=== PATIENT | male | born 1970 | race Caucasian/White ===

== ENCOUNTER 2022-04-03 16:32 | Inpatient (IN) | payer OTHER ==
[2022-04-03] MEDS ORDERED: NALOXONE HCL 0.4 MG/ML VIAL IM PRN (19:36)
[2022-04-03] MEDS ORDERED: MAGNESIUM CITRATE 300 ML BOTTLE PO PRN (19:36)
[2022-04-03] MEDS ORDERED: NICOTINE 10 MG CARTRIDGE (INHALER) IH PRN (19:36)
[2022-04-03] MEDS ORDERED: NALOXONE HCL (KLOXXADO) 8 MG SPRAY NS PRN (19:36)
[2022-04-03] MEDS ORDERED: guaiFENesin 200 MG/10 ML 10 ML UNIT-DOSE CUPS PO PRN (19:36)
[2022-04-03] MEDS ORDERED: BENZOCAINE/MENTHOL (CHLORASEPTIC ) LOZENGE MM PRN (19:36)
[2022-04-03] MEDS ORDERED: ACETAMINOPHEN 325 MG TABLET (FP) PO PRN (19:36)
[2022-04-03] MEDS ORDERED: ONDANSETRON *ODT* 4 MG TABLET SL PRN (19:36)
[2022-04-03] MEDS ORDERED: NICOTINE POLACRILEX 2 MG GUM BUC PRN (19:36)
[2022-04-03] MEDS ORDERED: DICYCLOMINE HCL 10 MG CAPSULE PO PRN (19:36)
[2022-04-03] MEDS ORDERED: P-EPHED 60MG/TRIPROLIDI 2.5MG TABLET PO PRN (19:36)
[2022-04-03] MEDS ORDERED: MAGNESIUM HYDROX 2400MG/30ML ORAL SUSPENSION 30 ML CUP PO PRN (19:36)
[2022-04-03] MEDS ORDERED: LOPERAMIDE HCL 2 MG CAPSULE PO PRN (19:36)
[2022-04-03] MEDS ORDERED: methaDONE HCL 10 MG TABLET PO ONE (20:40)
[2022-04-03] MEDS ORDERED: INSULIN (NOVOLOG) ASPART 100 UNITS/ML 10ML VIAL ONE (21:01)
[2022-04-03] MEDS: INSULIN SLIDING SCALE (NOVOLOG) 1 VIAL SQ SCH ×2 (21:09→23:28)
[2022-04-03] MEDS: THIAMINE HCL 100 MG TABLET (FP) PO SCH (21:11)
[2022-04-03] MEDS: MELATONIN 5 MG TABLETS PO PRN (22:20)
[2022-04-03] MEDS: BACITRACIN 0.9 GM PACKET TP SCH (23:26)
[2022-04-03] MEDS ORDERED: INSULIN (NOVOLOG) ASPART 100 UNITS/ML 10ML VIAL SQ ONE (23:27)
[2022-04-04] MEDS ORDERED: INSULIN (NOVOLOG) ASPART 100 UNITS/ML 10ML VIAL ONE ×3 (05:26→22:14)
[2022-04-04] MEDS: INSULIN SLIDING SCALE (NOVOLOG) 1 VIAL SQ SCH ×4 (06:21→22:22)
[2022-04-04] MEDS ORDERED: ALBUTEROL SO4 HFA INHALER IH PRN (10:05)
[2022-04-04] MEDS ORDERED: cloNIDine HCL 0.1 MG TABLET PO PRN (10:18)
[2022-04-04] MEDS ORDERED: methaDONE HCL 10 MG TABLET (FOR DETOX USE ONLY) PO ONE (10:45)
[2022-04-04 10:53] LABS: HEMATOCRIT 35.8 % (35.4-49); HEMOGLOBIN 11.5 GM/dL (11.7-16.9); MCH 24.5 pg (25.7-33.7); MEAN CELL VOLUME 76.6 fl (80-96); MEAN PLT VOLUME 8.1 fl (7.5-11.1); PLATELET COUNT 365 10^3/uL (134-434); RBC 4.68 M/mm3 (4.00-5.60); RDW 14.2 % (11.9-15.9); WHITE BLOOD COUNT 8.3 K/mm3 (4.0-10.0)
[2022-04-04] MEDS: METHOCARBAMOL 500 MG TABLET PO PRN (10:58)
[2022-04-04] MEDS: PRENATAL VITAMINS W/ FOLIC ACID TABLET (FP) PO SCH (10:58)
[2022-04-04] MEDS: amLODIPine BESYLATE 5 MG TABLET (FP) PO SCH (10:58)
[2022-04-04] MEDS: LISINOPRIL 10 MG TABLET PO SCH (10:58)
[2022-04-04] MEDS: diazePAM 5 MG TABLET PO PRN ×2 (11:03→22:17)
[2022-04-04] MEDS: BACITRACIN 0.9 GM PACKET TP SCH ×4 (11:03→22:17)
[2022-04-04 11:34] LABS: CALCIUM 8.8 mg/dL (8.5-10.1)
[2022-04-04 11:35] LABS: ALBUMIN 2.9 g/dl (3.4-5.0); BLOOD UREA NITROGEN 9.7 mg/dL (7-18)
[2022-04-04 11:38] LABS: CREATININE 0.8 mg/dL (0.55-1.3)
[2022-04-04 11:39] LABS: BILIRUBIN,TOTAL 0.2 mg/dL (0.2-1); TOT PROT 6.4 g/dl (6.4-8.2)
[2022-04-04] MEDS: MELATONIN 5 MG TABLETS PO PRN (22:17)
[2022-04-04] MEDS: THIAMINE HCL 100 MG TABLET (FP) PO SCH (22:17)
[2022-04-04] MEDS: INSULIN (LEVEMIR) 100 UNITS/ML UNITS SQ SCH (22:22)
[2022-04-05] MEDS ORDERED: INSULIN (NOVOLOG) ASPART 100 UNITS/ML 10ML VIAL ONE ×3 (07:32→16:45)
[2022-04-05] MEDS: INSULIN SLIDING SCALE (NOVOLOG) 1 VIAL SQ SCH ×4 (07:41→22:58)
[2022-04-05] MEDS: PRENATAL VITAMINS W/ FOLIC ACID TABLET (FP) PO SCH (10:07)
[2022-04-05] MEDS: LISINOPRIL 10 MG TABLET PO SCH (10:08)
[2022-04-05] MEDS: diazePAM 5 MG TABLET PO PRN ×2 (10:08→22:12)
[2022-04-05] MEDS: METHOCARBAMOL 500 MG TABLET PO PRN (10:08)
[2022-04-05] MEDS: amLODIPine BESYLATE 5 MG TABLET (FP) PO SCH (10:08)
[2022-04-05] MEDS: ACETAMINOPHEN 325 MG TABLET (FP) PO PRN (11:20)
[2022-04-05] MEDS: BACITRACIN 0.9 GM PACKET TP SCH (12:43)
[2022-04-05] MEDS: BACITRACIN 15 GM TUBE TOPICAL OINTMENT TP SCH ×3 (13:59→22:58)
[2022-04-05] MEDS: MELATONIN 5 MG TABLETS PO PRN (22:11)
[2022-04-05] MEDS: THIAMINE HCL 100 MG TABLET (FP) PO SCH (22:11)
[2022-04-05] MEDS: INSULIN (LEVEMIR) 100 UNITS/ML UNITS SQ SCH (22:57)
[2022-04-06] MEDS: diazePAM 5 MG TABLET PO PRN ×3 (05:51→23:01)
[2022-04-06] MEDS: METHOCARBAMOL 500 MG TABLET PO PRN (05:51)
[2022-04-06] MEDS: ACETAMINOPHEN 325 MG TABLET (FP) PO PRN (05:52)
[2022-04-06] MEDS: INSULIN SLIDING SCALE (NOVOLOG) 1 VIAL SQ SCH ×4 (07:48→16:52)
[2022-04-06] MEDS ORDERED: methaDONE HCL 10 MG TABLET (FOR DETOX USE ONLY) PO ONE (10:00)
[2022-04-06] MEDS: LISINOPRIL 10 MG TABLET PO SCH (10:22)
[2022-04-06] MEDS: hydrOXYzine PAMOATE 25 MG CAPSULE (FP) PO PRN (10:22)
[2022-04-06] MEDS: PRENATAL VITAMINS W/ FOLIC ACID TABLET (FP) PO SCH (10:22)
[2022-04-06] MEDS: amLODIPine BESYLATE 5 MG TABLET (FP) PO SCH (10:23)
[2022-04-06] MEDS: BACITRACIN 15 GM TUBE TOPICAL OINTMENT TP SCH ×3 (10:29→18:19)
[2022-04-06] MEDS: INSULIN (NOVOLOG) ASPART 100 UNITS/ML 10ML VIAL SQ SCH (16:51)
[2022-04-06] MEDS: INSULIN (LEVEMIR) 100 UNITS/ML UNITS SQ SCH (22:10)
[2022-04-06] MEDS: THIAMINE HCL 100 MG TABLET (FP) PO SCH (23:02)
[2022-04-06] MEDS: MELATONIN 5 MG TABLETS PO PRN (23:03)
[2022-04-07] MEDS: INSULIN (NOVOLOG) ASPART 100 UNITS/ML 10ML VIAL SQ SCH ×3 (07:27→16:40)
[2022-04-07] MEDS: INSULIN SLIDING SCALE (NOVOLOG) 1 VIAL SQ SCH ×4 (07:30→23:07)
[2022-04-07] MEDS ORDERED: INSULIN (NOVOLOG) ASPART 100 UNITS/ML 10ML VIAL ONE (07:46)
[2022-04-07] MEDS: hydrOXYzine PAMOATE 25 MG CAPSULE (FP) PO PRN (10:29)
[2022-04-07] MEDS: LISINOPRIL 10 MG TABLET PO SCH (10:29)
[2022-04-07] MEDS: amLODIPine BESYLATE 5 MG TABLET (FP) PO SCH (10:29)
[2022-04-07] MEDS: PRENATAL VITAMINS W/ FOLIC ACID TABLET (FP) PO SCH (10:29)
[2022-04-07] MEDS: METHOCARBAMOL 500 MG TABLET PO PRN (10:29)
[2022-04-07] MEDS: BACITRACIN 15 GM TUBE TOPICAL OINTMENT TP SCH ×5 (10:30→23:07)
[2022-04-07] MEDS: diazePAM 5 MG TABLET PO PRN ×3 (13:22→22:29)
[2022-04-07] MEDS ORDERED: cloNIDine HCL 0.1 MG TABLET PO ONE (13:30)
[2022-04-07] MEDS: THIAMINE HCL 100 MG TABLET (FP) PO SCH (22:30)
[2022-04-07] MEDS: MELATONIN 5 MG TABLETS PO PRN (22:30)
[2022-04-07] MEDS: INSULIN (LEVEMIR) 100 UNITS/ML UNITS SQ SCH (23:07)
[2022-04-08] MEDS: INSULIN (NOVOLOG) ASPART 100 UNITS/ML 10ML VIAL SQ SCH ×3 (07:05→17:20)
[2022-04-08] MEDS: INSULIN SLIDING SCALE (NOVOLOG) 1 VIAL SQ SCH ×4 (07:05→22:21)
[2022-04-08] MEDS ORDERED: methaDONE HCL 10 MG TABLET (FOR DETOX USE ONLY) PO ONE (10:00)
[2022-04-08] MEDS: amLODIPine BESYLATE 5 MG TABLET (FP) PO SCH (10:14)
[2022-04-08] MEDS: hydrOXYzine PAMOATE 25 MG CAPSULE (FP) PO PRN (10:14)
[2022-04-08] MEDS: LISINOPRIL 10 MG TABLET PO SCH (10:14)
[2022-04-08] MEDS: diazePAM 5 MG TABLET PO PRN (10:14)
[2022-04-08] MEDS: METHOCARBAMOL 500 MG TABLET PO PRN (10:14)
[2022-04-08] MEDS: PRENATAL VITAMINS W/ FOLIC ACID TABLET (FP) PO SCH (10:15)
[2022-04-08] MEDS: BACITRACIN 15 GM TUBE TOPICAL OINTMENT TP SCH ×4 (10:15→22:21)
[2022-04-08] MEDS: INSULIN (LEVEMIR) 100 UNITS/ML UNITS SQ SCH (22:21)
[2022-04-08] MEDS: THIAMINE HCL 100 MG TABLET (FP) PO SCH (22:22)
[2022-04-09] MEDS: INSULIN (NOVOLOG) ASPART 100 UNITS/ML 10ML VIAL SQ SCH ×3 (06:40→16:47)
[2022-04-09] MEDS: INSULIN SLIDING SCALE (NOVOLOG) 1 VIAL SQ SCH ×4 (06:41→21:25)
[2022-04-09] MEDS: MAG HYDROX/AL HYDROX/SIMETH 30 ML UNIT-DOSE CUP PO PRN (07:16)
[2022-04-09] MEDS: LISINOPRIL 10 MG TABLET PO SCH (10:37)
[2022-04-09] MEDS: amLODIPine BESYLATE 5 MG TABLET (FP) PO SCH (10:37)
[2022-04-09] MEDS: PRENATAL VITAMINS W/ FOLIC ACID TABLET (FP) PO SCH (10:37)
[2022-04-09] MEDS: hydrOXYzine PAMOATE 25 MG CAPSULE (FP) PO PRN ×2 (10:38→22:25)
[2022-04-09] MEDS: METHOCARBAMOL 500 MG TABLET PO PRN (10:38)
[2022-04-09] MEDS: BACITRACIN 15 GM TUBE TOPICAL OINTMENT TP SCH ×4 (10:44→21:37)
[2022-04-09] MEDS: INSULIN (LEVEMIR) 100 UNITS/ML UNITS SQ SCH (21:37)
[2022-04-09] MEDS ORDERED: risperiDONE 1 MG TABLET PO SCH (22:00)
[2022-04-09] MEDS: THIAMINE HCL 100 MG TABLET (FP) PO SCH (22:25)
[2022-04-09] MEDS: MELATONIN 5 MG TABLETS PO PRN (22:25)
[2022-04-09] MEDS: diazePAM 5 MG TABLET PO PRN (22:26)
[2022-04-10] MEDS: INSULIN (NOVOLOG) ASPART 100 UNITS/ML 10ML VIAL SQ SCH ×2 (07:31→11:52)
[2022-04-10] MEDS: INSULIN SLIDING SCALE (NOVOLOG) 1 VIAL SQ SCH ×2 (07:31→11:54)
[2022-04-10] MEDS: MAG HYDROX/AL HYDROX/SIMETH 30 ML UNIT-DOSE CUP PO PRN (08:45)
[2022-04-10] MEDS: ACETAMINOPHEN 325 MG TABLET (FP) PO PRN (08:46)
[2022-04-10 09:05] VITALS: BP 122/64; PULSE 86; RESP 16; TEMP 96
[2022-04-10] MEDS: amLODIPine BESYLATE 5 MG TABLET (FP) PO SCH (10:27)
[2022-04-10] MEDS: LISINOPRIL 10 MG TABLET PO SCH (10:27)
[2022-04-10] MEDS: BACITRACIN 15 GM TUBE TOPICAL OINTMENT TP SCH (10:28)
[2022-04-10] MEDS: PRENATAL VITAMINS W/ FOLIC ACID TABLET (FP) PO SCH (10:28)
== END 2022-04-10 12:03 | disposition other institution (70) | DRG 773 ==
LOC: YASAS 16:32 → Y6N 19:39
PROVIDERS: ADMIT Allergy & Immunology; ATTEND Surgery
PROC: HZ2ZZZZ Detoxification Services for Substance Abuse Treatment (ICD-10-PCS; principal; 2022-04-03)
DX: F11.23 Opioid dependence with withdrawal (principal); F14.20 Cocaine dependence, uncomplicated; F12.20 Cannabis dependence, uncomplicated; F17.210 Nicotine dependence, cigarettes, uncomplicated; F25.9 Schizoaffective disorder, unspecified; F19.282 Other psychoactive substance dependence with psychoactive substance-induced sleep disorder; I10 Essential (primary) hypertension; J45.909 Unspecified asthma, uncomplicated; E11.9 Type 2 diabetes mellitus without complications; Z79.4 Long term (current) use of insulin; S09.90XA Unspecified injury of head, initial encounter; W05.0XXA Fall from non-moving wheelchair, initial encounter; Y92.230 Patient room in hospital as the place of occurrence of the external cause; Z89.511 Acquired absence of right leg below knee; Z99.89 Dependence on other enabling machines and devices; Z88.6 Allergy status to analgesic agent; Z91.013 Allergy to seafood
CPT/HCPCS: 36415; 80053; 82962; 85027; 86780; C9803-CS; J2794; U0003; U0005

== ENCOUNTER 2022-04-10 12:14 | Inpatient (IN) | payer OTHER ==
[2022-04-10] MEDS ORDERED: LOPERAMIDE HCL 2 MG CAPSULE PO PRN (13:54)
[2022-04-10] MEDS ORDERED: BENZOCAINE/MENTHOL (CHLORASEPTIC ) LOZENGE MM PRN (13:54)
[2022-04-10] MEDS ORDERED: MAG HYDROX/AL HYDROX/SIMETH 30 ML UNIT-DOSE CUP PO PRN (13:54)
[2022-04-10] MEDS ORDERED: MAGNESIUM HYDROX 2400MG/30ML ORAL SUSPENSION 30 ML CUP PO PRN (13:54)
[2022-04-10] MEDS ORDERED: MAGNESIUM CITRATE 300 ML BOTTLE PO PRN (13:54)
[2022-04-10] MEDS ORDERED: guaiFENesin 200 MG/10 ML 10 ML UNIT-DOSE CUPS PO PRN (13:54)
[2022-04-10] MEDS ORDERED: IBUPROFEN 400 MG TABLET (FP) PO PRN (13:54)
[2022-04-10] MEDS ORDERED: ACETAMINOPHEN 325 MG TABLET (FP) PO PRN (13:54)
[2022-04-10] MEDS ORDERED: P-EPHED 60MG/TRIPROLIDI 2.5MG TABLET PO PRN (13:54)
[2022-04-10] MEDS ORDERED: PATIENT'S OWN MEDICATION (NON-FORMULARY) (Albuterol Sulfate [Proair Respiclick] 90 MCG Aer IH SCH (14:15)
[2022-04-10] MEDS ORDERED: ALBUTEROL SO4 HFA INHALER IH PRN (15:04)
[2022-04-10] MEDS ORDERED: INSULIN SLIDING SCALE (NOVOLOG) 1 VIAL SQ SCH (16:30)
[2022-04-10] MEDS ORDERED: INSULIN (NOVOLOG) ASPART 100 UNITS/ML 10ML VIAL ONE (16:42)
[2022-04-10] MEDS: INSULIN (NOVOLOG) ASPART 100 UNITS/ML 10ML VIAL SQ SCH (16:43)
[2022-04-10] MEDS: INSULIN SLIDING SCALE (NOVOLOG) 1 VIAL SQ SCH ×2 (16:44→21:15)
[2022-04-10] MEDS: risperiDONE 1 MG TABLET PO SCH (21:13)
[2022-04-10] MEDS: THIAMINE HCL 100 MG TABLET (FP) PO SCH (21:13)
[2022-04-10] MEDS: hydrOXYzine PAMOATE 25 MG CAPSULE (FP) PO PRN (21:13)
[2022-04-10] MEDS: MELATONIN 5 MG TABLETS PO SCH (21:13)
[2022-04-11] MEDS: INSULIN (NOVOLOG) ASPART 100 UNITS/ML 10ML VIAL SQ SCH ×3 (06:09→16:58)
[2022-04-11] MEDS: INSULIN SLIDING SCALE (NOVOLOG) 1 VIAL SQ SCH ×4 (06:09→21:20)
[2022-04-11] MEDS ORDERED: INSULIN (NOVOLOG) ASPART 100 UNITS/ML 10ML VIAL ONE ×2 (06:33→11:39)
[2022-04-11] MEDS: PRENATAL VITAMINS W/ FOLIC ACID TABLET (FP) PO SCH (09:41)
[2022-04-11] MEDS: NICOTINE 7 MG/24 HOURS TOPICAL PATCH TD SCH (09:42)
[2022-04-11] MEDS: LISINOPRIL 10 MG TABLET PO SCH (09:43)
[2022-04-11] MEDS ORDERED: risperiDONE 1 MG TABLET PO SCH (14:00)
[2022-04-11] MEDS: hydrOXYzine PAMOATE 25 MG CAPSULE (FP) PO PRN (21:20)
[2022-04-11] MEDS: THIAMINE HCL 100 MG TABLET (FP) PO SCH (21:20)
[2022-04-11] MEDS: risperiDONE 1 MG TABLET PO SCH (21:20)
[2022-04-11] MEDS: MELATONIN 5 MG TABLETS PO SCH (21:21)
[2022-04-11] MEDS: INSULIN (LEVEMIR) 100 UNITS/ML UNITS SQ SCH (21:21)
[2022-04-12] MEDS: INSULIN SLIDING SCALE (NOVOLOG) 1 VIAL SQ SCH ×4 (06:14→21:34)
[2022-04-12] MEDS: INSULIN (NOVOLOG) ASPART 100 UNITS/ML 10ML VIAL SQ SCH ×3 (07:40→16:46)
[2022-04-12] MEDS ORDERED: LISINOPRIL 10 MG TABLET PO SCH (10:00)
[2022-04-12] MEDS: NICOTINE 7 MG/24 HOURS TOPICAL PATCH TD SCH (10:14)
[2022-04-12] MEDS: LISINOPRIL 10 MG TABLET PO SCH (10:15)
[2022-04-12] MEDS: amLODIPine BESYLATE 5 MG TABLET (FP) PO SCH (10:15)
[2022-04-12] MEDS: PRENATAL VITAMINS W/ FOLIC ACID TABLET (FP) PO SCH (10:15)
[2022-04-12] MEDS: NICOTINE 10 MG CARTRIDGE (INHALER) IH PRN (10:17)
[2022-04-12] MEDS ORDERED: INSULIN (NOVOLOG) ASPART 100 UNITS/ML 10ML VIAL ONE ×2 (12:06→16:36)
[2022-04-12] MEDS: ACETAMINOPHEN 325 MG TABLET (FP) PO PRN ×2 (12:08→18:44)
[2022-04-12] MEDS: MELATONIN 5 MG TABLETS PO SCH (21:29)
[2022-04-12] MEDS: THIAMINE HCL 100 MG TABLET (FP) PO SCH (21:29)
[2022-04-12] MEDS: risperiDONE 1 MG TABLET PO SCH (21:30)
[2022-04-12] MEDS: INSULIN (LEVEMIR) 100 UNITS/ML UNITS SQ SCH (21:33)
[2022-04-12] MEDS ORDERED: INSULIN (LEVEMIR) 100 UNITS/ML UNITS SQ ONE (21:52)
[2022-04-13] MEDS: ACETAMINOPHEN 325 MG TABLET (FP) PO PRN ×3 (06:11→18:59)
[2022-04-13] MEDS: INSULIN (NOVOLOG) ASPART 100 UNITS/ML 10ML VIAL SQ SCH ×3 (06:35→16:43)
[2022-04-13] MEDS: INSULIN SLIDING SCALE (NOVOLOG) 1 VIAL SQ SCH ×4 (06:36→21:11)
[2022-04-13] MEDS ORDERED: INSULIN (NOVOLOG) ASPART 100 UNITS/ML 10ML VIAL ONE ×3 (07:52→21:53)
[2022-04-13] MEDS: LISINOPRIL 10 MG TABLET PO SCH (09:46)
[2022-04-13] MEDS: PRENATAL VITAMINS W/ FOLIC ACID TABLET (FP) PO SCH (09:46)
[2022-04-13] MEDS: amLODIPine BESYLATE 5 MG TABLET (FP) PO SCH (09:46)
[2022-04-13] MEDS: NICOTINE 10 MG CARTRIDGE (INHALER) IH PRN ×2 (09:47→15:35)
[2022-04-13] MEDS: NICOTINE 7 MG/24 HOURS TOPICAL PATCH TD SCH (09:47)
[2022-04-13] MEDS: FERROUS SO4 325 MG TABLET (FP) PO SCH (09:48)
[2022-04-13] MEDS ORDERED: PATIENT'S OWN MEDICATION (NON-FORMULARY) (Ferrous Sulfate [Ferrous Sulfate] 325 MG Tablet) PO SCH (10:00)
[2022-04-13] MEDS: MELATONIN 5 MG TABLETS PO SCH (21:05)
[2022-04-13] MEDS: THIAMINE HCL 100 MG TABLET (FP) PO SCH (21:05)
[2022-04-13] MEDS: hydrOXYzine PAMOATE 25 MG CAPSULE (FP) PO PRN (21:06)
[2022-04-13] MEDS: risperiDONE 1 MG TABLET PO SCH (21:06)
[2022-04-13] MEDS: INSULIN (LEVEMIR) 100 UNITS/ML UNITS SQ SCH (21:10)
[2022-04-13] MEDS ORDERED: INSULIN (LEVEMIR) 100 UNITS/ML UNITS SQ ONE (21:53)
[2022-04-14] MEDS: ACETAMINOPHEN 325 MG TABLET (FP) PO PRN ×2 (06:16→14:42)
[2022-04-14] MEDS: NICOTINE 10 MG CARTRIDGE (INHALER) IH PRN ×3 (06:18→14:43)
[2022-04-14] MEDS: INSULIN (NOVOLOG) ASPART 100 UNITS/ML 10ML VIAL SQ SCH ×3 (07:42→16:59)
[2022-04-14] MEDS: INSULIN SLIDING SCALE (NOVOLOG) 1 VIAL SQ SCH ×4 (07:43→21:20)
[2022-04-14] MEDS ORDERED: INSULIN (NOVOLOG) ASPART 100 UNITS/ML 10ML VIAL ONE ×3 (07:46→16:55)
[2022-04-14] MEDS ORDERED: ONDANSETRON *ODT* 4 MG TABLET SL ONE (09:45)
[2022-04-14] MEDS ORDERED: ONDANSETRON 4 MG TABLET PO ONE (09:45)
[2022-04-14] MEDS: LISINOPRIL 10 MG TABLET PO SCH (10:48)
[2022-04-14] MEDS: PRENATAL VITAMINS W/ FOLIC ACID TABLET (FP) PO SCH (10:48)
[2022-04-14] MEDS: NICOTINE 7 MG/24 HOURS TOPICAL PATCH TD SCH (10:48)
[2022-04-14] MEDS: risperiDONE 1 MG TABLET PO SCH ×2 (10:48→21:16)
[2022-04-14] MEDS: amLODIPine BESYLATE 5 MG TABLET (FP) PO SCH (10:48)
[2022-04-14] MEDS ORDERED: NICOTINE 7 MG/24 HOURS TOPICAL PATCH TD PRN (11:24)
[2022-04-14] MEDS: ONDANSETRON *ODT* 4 MG TABLET SL PRN (17:01)
[2022-04-14] MEDS: hydrOXYzine PAMOATE 25 MG CAPSULE (FP) PO PRN (21:16)
[2022-04-14] MEDS: MELATONIN 5 MG TABLETS PO SCH (21:16)
[2022-04-14] MEDS: THIAMINE HCL 100 MG TABLET (FP) PO SCH (21:16)
[2022-04-14] MEDS: traZODone HCL 50 MG TABLET (FP) PO SCH (21:18)
[2022-04-14] MEDS: INSULIN (LEVEMIR) 100 UNITS/ML UNITS SQ SCH (21:21)
[2022-04-15] MEDS: ONDANSETRON *ODT* 4 MG TABLET SL PRN ×2 (06:17→11:58)
[2022-04-15] MEDS: ACETAMINOPHEN 325 MG TABLET (FP) PO PRN ×3 (06:18→18:40)
[2022-04-15] MEDS: INSULIN (NOVOLOG) ASPART 100 UNITS/ML 10ML VIAL SQ SCH ×3 (07:57→16:52)
[2022-04-15] MEDS: INSULIN SLIDING SCALE (NOVOLOG) 1 VIAL SQ SCH ×4 (07:57→22:25)
[2022-04-15] MEDS ORDERED: INSULIN (NOVOLOG) ASPART 100 UNITS/ML 10ML VIAL ONE ×2 (08:03→11:55)
[2022-04-15] MEDS: amLODIPine BESYLATE 5 MG TABLET (FP) PO SCH (09:47)
[2022-04-15] MEDS: LISINOPRIL 10 MG TABLET PO SCH (09:47)
[2022-04-15] MEDS: PRENATAL VITAMINS W/ FOLIC ACID TABLET (FP) PO SCH (09:47)
[2022-04-15] MEDS: risperiDONE 1 MG TABLET PO SCH ×2 (09:47→21:28)
[2022-04-15] MEDS: FERROUS SO4 325 MG TABLET (FP) PO SCH (09:48)
[2022-04-15] MEDS: NICOTINE 10 MG CARTRIDGE (INHALER) IH PRN (11:58)
[2022-04-15] MEDS: IBUPROFEN 600 MG TABLET (FP) PO PRN ×2 (15:17→21:29)
[2022-04-15] MEDS: INSULIN (LEVEMIR) 100 UNITS/ML UNITS SQ SCH (21:24)
[2022-04-15] MEDS: traZODone HCL 50 MG TABLET (FP) PO SCH (21:28)
[2022-04-15] MEDS: MELATONIN 5 MG TABLETS PO SCH (21:28)
[2022-04-15] MEDS: THIAMINE HCL 100 MG TABLET (FP) PO SCH (21:28)
[2022-04-15] MEDS: hydrOXYzine PAMOATE 25 MG CAPSULE (FP) PO PRN (21:28)
[2022-04-16] MEDS: ACETAMINOPHEN 325 MG TABLET (FP) PO PRN ×2 (06:22→13:42)
[2022-04-16] MEDS: NICOTINE 10 MG CARTRIDGE (INHALER) IH PRN ×3 (06:28→21:17)
[2022-04-16] MEDS ORDERED: INSULIN (NOVOLOG) ASPART 100 UNITS/ML 10ML VIAL ONE ×2 (06:48→11:49)
[2022-04-16] MEDS: INSULIN (NOVOLOG) ASPART 100 UNITS/ML 10ML VIAL SQ SCH ×3 (07:55→16:53)
[2022-04-16] MEDS: INSULIN SLIDING SCALE (NOVOLOG) 1 VIAL SQ SCH ×4 (07:56→22:03)
[2022-04-16] MEDS: PRENATAL VITAMINS W/ FOLIC ACID TABLET (FP) PO SCH (09:44)
[2022-04-16] MEDS: LISINOPRIL 10 MG TABLET PO SCH (09:44)
[2022-04-16] MEDS: IBUPROFEN 600 MG TABLET (FP) PO PRN ×2 (09:44→17:44)
[2022-04-16] MEDS: amLODIPine BESYLATE 5 MG TABLET (FP) PO SCH (09:44)
[2022-04-16] MEDS: risperiDONE 1 MG TABLET PO SCH ×2 (09:44→21:16)
[2022-04-16] MEDS: hydrOXYzine PAMOATE 25 MG CAPSULE (FP) PO PRN (21:15)
[2022-04-16] MEDS: THIAMINE HCL 100 MG TABLET (FP) PO SCH (21:16)
[2022-04-16] MEDS: MELATONIN 5 MG TABLETS PO SCH (21:16)
[2022-04-16] MEDS: traZODone HCL 50 MG TABLET (FP) PO SCH (21:16)
[2022-04-16] MEDS: INSULIN (LEVEMIR) 100 UNITS/ML UNITS SQ SCH (22:02)
[2022-04-17] MEDS: ACETAMINOPHEN 325 MG TABLET (FP) PO PRN (06:22)
[2022-04-17] MEDS: INSULIN SLIDING SCALE (NOVOLOG) 1 VIAL SQ SCH ×4 (07:47→22:00)
[2022-04-17] MEDS: INSULIN (NOVOLOG) ASPART 100 UNITS/ML 10ML VIAL SQ SCH ×3 (07:48→16:43)
[2022-04-17] MEDS ORDERED: INSULIN (NOVOLOG) ASPART 100 UNITS/ML 10ML VIAL ONE ×2 (07:51→12:07)
[2022-04-17] MEDS: PRENATAL VITAMINS W/ FOLIC ACID TABLET (FP) PO SCH (09:46)
[2022-04-17] MEDS: NICOTINE 10 MG CARTRIDGE (INHALER) IH PRN ×2 (09:46→17:07)
[2022-04-17] MEDS: amLODIPine BESYLATE 5 MG TABLET (FP) PO SCH (09:46)
[2022-04-17] MEDS: risperiDONE 1 MG TABLET PO SCH ×2 (09:46→21:34)
[2022-04-17] MEDS: LISINOPRIL 10 MG TABLET PO SCH (09:46)
[2022-04-17] MEDS: FERROUS SO4 325 MG TABLET (FP) PO SCH (09:46)
[2022-04-17 14:46] LABS: EOS % 3.7 % (0-4.5); HEMATOCRIT 35.4 % (35.4-49); HEMOGLOBIN 11.3 GM/dL (11.7-16.9); LYMPH % 21.3 % (8-40); MCH 24.6 pg (25.7-33.7); MCHC 31.9 g/dl (32.0-35.9); MEAN CELL VOLUME 77.3 fl (80-96); MEAN PLT VOLUME 7.8 fl (7.5-11.1); MONO % 7.8 % (3.8-10.2); NEUT % 66.2 % (42.8-82.8); PLATELET COUNT 391 10^3/uL (134-434); RBC 4.59 M/mm3 (4.00-5.60); RDW 14.8 % (11.9-15.9); WHITE BLOOD COUNT 10.9 K/mm3 (4.0-10.0)
[2022-04-17] MEDS: GABAPENTIN 100 MG CAPSULE PO SCH ×2 (16:04→21:34)
[2022-04-17] MEDS: IBUPROFEN 600 MG TABLET (FP) PO PRN (17:07)
[2022-04-17] MEDS: hydrOXYzine PAMOATE 25 MG CAPSULE (FP) PO PRN (21:34)
[2022-04-17] MEDS: THIAMINE HCL 100 MG TABLET (FP) PO SCH (21:34)
[2022-04-17] MEDS: traZODone HCL 50 MG TABLET (FP) PO SCH (21:35)
[2022-04-17] MEDS: MELATONIN 5 MG TABLETS PO SCH (21:36)
[2022-04-17] MEDS: INSULIN (LEVEMIR) 100 UNITS/ML UNITS SQ SCH (21:59)
[2022-04-17] MEDS ORDERED: INSULIN (LEVEMIR) 100 UNITS/ML UNITS SQ SCH (22:00)
[2022-04-18] MEDS: GABAPENTIN 100 MG CAPSULE PO SCH ×3 (06:17→21:06)
[2022-04-18] MEDS ORDERED: INSULIN (NOVOLOG) ASPART 100 UNITS/ML 10ML VIAL ONE ×3 (07:37→22:01)
[2022-04-18] MEDS: INSULIN (NOVOLOG) ASPART 100 UNITS/ML 10ML VIAL SQ SCH ×3 (07:45→16:36)
[2022-04-18] MEDS: INSULIN SLIDING SCALE (NOVOLOG) 1 VIAL SQ SCH ×4 (07:45→21:06)
[2022-04-18] MEDS: amLODIPine BESYLATE 5 MG TABLET (FP) PO SCH (10:06)
[2022-04-18] MEDS: LISINOPRIL 10 MG TABLET PO SCH (10:06)
[2022-04-18] MEDS: PRENATAL VITAMINS W/ FOLIC ACID TABLET (FP) PO SCH (10:06)
[2022-04-18] MEDS: risperiDONE 1 MG TABLET PO SCH ×2 (10:06→21:06)
[2022-04-18] MEDS: ACETAMINOPHEN 325 MG TABLET (FP) PO PRN ×2 (10:08→16:39)
[2022-04-18] MEDS: INSULIN (LEVEMIR) 100 UNITS/ML UNITS SQ SCH (21:04)
[2022-04-18] MEDS: MELATONIN 5 MG TABLETS PO SCH (21:05)
[2022-04-18] MEDS: THIAMINE HCL 100 MG TABLET (FP) PO SCH (21:05)
[2022-04-18] MEDS: hydrOXYzine PAMOATE 25 MG CAPSULE (FP) PO PRN (21:06)
[2022-04-18] MEDS: traZODone HCL 50 MG TABLET (FP) PO SCH (21:06)
[2022-04-18] MEDS ORDERED: INSULIN (LEVEMIR) 100 UNITS/ML UNITS SQ ONE (22:01)
[2022-04-19] MEDS: GABAPENTIN 100 MG CAPSULE PO SCH ×3 (06:14→21:11)
[2022-04-19] MEDS: NICOTINE 10 MG CARTRIDGE (INHALER) IH PRN (06:16)
[2022-04-19] MEDS: INSULIN (NOVOLOG) ASPART 100 UNITS/ML 10ML VIAL SQ SCH ×3 (06:17→16:49)
[2022-04-19] MEDS: INSULIN SLIDING SCALE (NOVOLOG) 1 VIAL SQ SCH ×4 (06:18→21:13)
[2022-04-19] MEDS: FERROUS SO4 325 MG TABLET (FP) PO SCH (09:48)
[2022-04-19] MEDS: LISINOPRIL 10 MG TABLET PO SCH (09:48)
[2022-04-19] MEDS: risperiDONE 1 MG TABLET PO SCH ×2 (09:49→21:11)
[2022-04-19] MEDS: PRENATAL VITAMINS W/ FOLIC ACID TABLET (FP) PO SCH (09:49)
[2022-04-19] MEDS: amLODIPine BESYLATE 5 MG TABLET (FP) PO SCH (09:49)
[2022-04-19] MEDS: ACETAMINOPHEN 325 MG TABLET (FP) PO PRN ×2 (09:50→16:50)
[2022-04-19] MEDS: MELATONIN 5 MG TABLETS PO SCH (21:09)
[2022-04-19] MEDS: INSULIN (LEVEMIR) 100 UNITS/ML UNITS SQ SCH (21:10)
[2022-04-19] MEDS: traZODone HCL 50 MG TABLET (FP) PO SCH (21:10)
[2022-04-19] MEDS: THIAMINE HCL 100 MG TABLET (FP) PO SCH (21:11)
[2022-04-20] MEDS: GABAPENTIN 100 MG CAPSULE PO SCH ×3 (06:20→21:20)
[2022-04-20] MEDS: INSULIN (NOVOLOG) ASPART 100 UNITS/ML 10ML VIAL SQ SCH ×3 (07:45→17:02)
[2022-04-20] MEDS: INSULIN SLIDING SCALE (NOVOLOG) 1 VIAL SQ SCH ×4 (07:45→22:10)
[2022-04-20] MEDS ORDERED: INSULIN (NOVOLOG) ASPART 100 UNITS/ML 10ML VIAL ONE ×2 (07:47→12:02)
[2022-04-20] MEDS: amLODIPine BESYLATE 5 MG TABLET (FP) PO SCH (10:02)
[2022-04-20] MEDS: risperiDONE 1 MG TABLET PO SCH ×2 (10:03→21:20)
[2022-04-20] MEDS: PRENATAL VITAMINS W/ FOLIC ACID TABLET (FP) PO SCH (10:03)
[2022-04-20] MEDS: LISINOPRIL 10 MG TABLET PO SCH (10:03)
[2022-04-20] MEDS: ACETAMINOPHEN 325 MG TABLET (FP) PO PRN ×2 (10:03→16:59)
[2022-04-20] MEDS: traZODone HCL 50 MG TABLET (FP) PO SCH (21:20)
[2022-04-20] MEDS: MELATONIN 5 MG TABLETS PO SCH (21:21)
[2022-04-20] MEDS: THIAMINE HCL 100 MG TABLET (FP) PO SCH (21:21)
[2022-04-20] MEDS: INSULIN (LEVEMIR) 100 UNITS/ML UNITS SQ SCH (22:08)
[2022-04-21] MEDS: GABAPENTIN 100 MG CAPSULE PO SCH ×3 (06:09→21:02)
[2022-04-21] MEDS: INSULIN (NOVOLOG) ASPART 100 UNITS/ML 10ML VIAL SQ SCH ×3 (08:01→16:45)
[2022-04-21] MEDS: INSULIN SLIDING SCALE (NOVOLOG) 1 VIAL SQ SCH ×4 (08:02→22:00)
[2022-04-21] MEDS ORDERED: INSULIN (NOVOLOG) ASPART 100 UNITS/ML 10ML VIAL ONE ×2 (08:04→11:41)
[2022-04-21] MEDS: FERROUS SO4 325 MG TABLET (FP) PO SCH (09:52)
[2022-04-21] MEDS: LISINOPRIL 10 MG TABLET PO SCH (09:52)
[2022-04-21] MEDS: risperiDONE 1 MG TABLET PO SCH ×2 (09:52→21:01)
[2022-04-21] MEDS: amLODIPine BESYLATE 5 MG TABLET (FP) PO SCH (09:52)
[2022-04-21] MEDS: PRENATAL VITAMINS W/ FOLIC ACID TABLET (FP) PO SCH (09:53)
[2022-04-21] MEDS: ACETAMINOPHEN 325 MG TABLET (FP) PO PRN (09:53)
[2022-04-21] MEDS: hydrOXYzine PAMOATE 25 MG CAPSULE (FP) PO PRN (21:01)
[2022-04-21] MEDS: traZODone HCL 50 MG TABLET (FP) PO SCH (21:01)
[2022-04-21] MEDS: THIAMINE HCL 100 MG TABLET (FP) PO SCH (21:01)
[2022-04-21] MEDS: MELATONIN 5 MG TABLETS PO SCH (21:02)
[2022-04-21] MEDS: INSULIN (LEVEMIR) 100 UNITS/ML UNITS SQ SCH (22:00)
[2022-04-22] MEDS: NICOTINE 10 MG CARTRIDGE (INHALER) IH PRN (06:17)
[2022-04-22] MEDS: GABAPENTIN 100 MG CAPSULE PO SCH ×3 (06:17→21:06)
[2022-04-22] MEDS: INSULIN (NOVOLOG) ASPART 100 UNITS/ML 10ML VIAL SQ SCH ×3 (06:55→16:32)
[2022-04-22] MEDS: INSULIN SLIDING SCALE (NOVOLOG) 1 VIAL SQ SCH ×4 (06:56→21:07)
[2022-04-22] MEDS: PRENATAL VITAMINS W/ FOLIC ACID TABLET (FP) PO SCH (09:49)
[2022-04-22] MEDS: LISINOPRIL 10 MG TABLET PO SCH (09:49)
[2022-04-22] MEDS: amLODIPine BESYLATE 5 MG TABLET (FP) PO SCH (09:49)
[2022-04-22] MEDS: risperiDONE 1 MG TABLET PO SCH ×2 (09:50→21:06)
[2022-04-22] MEDS: ACETAMINOPHEN 325 MG TABLET (FP) PO PRN ×2 (09:50→16:34)
[2022-04-22] MEDS ORDERED: INSULIN (NOVOLOG) ASPART 100 UNITS/ML 10ML VIAL ONE ×2 (11:50→22:08)
[2022-04-22] MEDS: INSULIN (LEVEMIR) 100 UNITS/ML UNITS SQ SCH (21:03)
[2022-04-22] MEDS: THIAMINE HCL 100 MG TABLET (FP) PO SCH (21:06)
[2022-04-22] MEDS: MELATONIN 5 MG TABLETS PO SCH (21:06)
[2022-04-22] MEDS: traZODone HCL 50 MG TABLET (FP) PO SCH (21:06)
[2022-04-23] MEDS: GABAPENTIN 100 MG CAPSULE PO SCH ×3 (06:20→21:10)
[2022-04-23] MEDS: INSULIN (NOVOLOG) ASPART 100 UNITS/ML 10ML VIAL SQ SCH ×3 (06:21→16:37)
[2022-04-23] MEDS: INSULIN SLIDING SCALE (NOVOLOG) 1 VIAL SQ SCH ×4 (06:21→21:08)
[2022-04-23] MEDS ORDERED: INSULIN (NOVOLOG) ASPART 100 UNITS/ML 10ML VIAL ONE (06:47)
[2022-04-23] MEDS: ACETAMINOPHEN 325 MG TABLET (FP) PO PRN ×2 (10:15→16:39)
[2022-04-23] MEDS: PRENATAL VITAMINS W/ FOLIC ACID TABLET (FP) PO SCH (10:16)
[2022-04-23] MEDS: risperiDONE 1 MG TABLET PO SCH ×2 (10:16→21:11)
[2022-04-23] MEDS: FERROUS SO4 325 MG TABLET (FP) PO SCH (10:16)
[2022-04-23] MEDS: LISINOPRIL 10 MG TABLET PO SCH (10:16)
[2022-04-23] MEDS: amLODIPine BESYLATE 5 MG TABLET (FP) PO SCH (10:16)
[2022-04-23] MEDS: THIAMINE HCL 100 MG TABLET (FP) PO SCH (21:06)
[2022-04-23] MEDS: MELATONIN 5 MG TABLETS PO SCH (21:07)
[2022-04-23] MEDS: INSULIN (LEVEMIR) 100 UNITS/ML UNITS SQ SCH (21:09)
[2022-04-23] MEDS: traZODone HCL 50 MG TABLET (FP) PO SCH (21:10)
[2022-04-23] MEDS ORDERED: INSULIN (LEVEMIR) 100 UNITS/ML UNITS SQ ONE (21:40)
[2022-04-24] MEDS: GABAPENTIN 100 MG CAPSULE PO SCH ×3 (06:26→21:20)
[2022-04-24] MEDS: INSULIN SLIDING SCALE (NOVOLOG) 1 VIAL SQ SCH ×4 (07:58→21:23)
[2022-04-24] MEDS: INSULIN (NOVOLOG) ASPART 100 UNITS/ML 10ML VIAL SQ SCH ×3 (07:58→16:35)
[2022-04-24] MEDS ORDERED: INSULIN (NOVOLOG) ASPART 100 UNITS/ML 10ML VIAL ONE ×3 (08:31→21:36)
[2022-04-24] MEDS: amLODIPine BESYLATE 5 MG TABLET (FP) PO SCH (10:07)
[2022-04-24] MEDS: LISINOPRIL 10 MG TABLET PO SCH (10:07)
[2022-04-24] MEDS: risperiDONE 1 MG TABLET PO SCH ×2 (10:07→21:20)
[2022-04-24] MEDS: PRENATAL VITAMINS W/ FOLIC ACID TABLET (FP) PO SCH (10:07)
[2022-04-24] MEDS: ACETAMINOPHEN 325 MG TABLET (FP) PO PRN (10:08)
[2022-04-24] MEDS: traZODone HCL 50 MG TABLET (FP) PO SCH (21:19)
[2022-04-24] MEDS: THIAMINE HCL 100 MG TABLET (FP) PO SCH (21:19)
[2022-04-24] MEDS: MELATONIN 5 MG TABLETS PO SCH (21:19)
[2022-04-24] MEDS: hydrOXYzine PAMOATE 25 MG CAPSULE (FP) PO PRN (21:20)
[2022-04-24] MEDS: INSULIN (LEVEMIR) 100 UNITS/ML UNITS SQ SCH (21:22)
[2022-04-24] MEDS ORDERED: INSULIN (LEVEMIR) 100 UNITS/ML UNITS SQ ONE (21:37)
[2022-04-25] MEDS: GABAPENTIN 100 MG CAPSULE PO SCH (06:22)
[2022-04-25] MEDS: INSULIN (NOVOLOG) ASPART 100 UNITS/ML 10ML VIAL SQ SCH ×3 (06:26→16:50)
[2022-04-25] MEDS: INSULIN SLIDING SCALE (NOVOLOG) 1 VIAL SQ SCH ×4 (06:27→21:08)
[2022-04-25] MEDS ORDERED: INSULIN (NOVOLOG) ASPART 100 UNITS/ML 10ML VIAL ONE ×2 (06:41→11:03)
[2022-04-25] MEDS: risperiDONE 1 MG TABLET PO SCH ×2 (10:09→21:06)
[2022-04-25] MEDS: FERROUS SO4 325 MG TABLET (FP) PO SCH (10:09)
[2022-04-25] MEDS: PRENATAL VITAMINS W/ FOLIC ACID TABLET (FP) PO SCH (10:09)
[2022-04-25] MEDS: LISINOPRIL 10 MG TABLET PO SCH (10:09)
[2022-04-25] MEDS: amLODIPine BESYLATE 5 MG TABLET (FP) PO SCH (10:09)
[2022-04-25] MEDS: ACETAMINOPHEN 325 MG TABLET (FP) PO PRN ×2 (10:40→16:50)
[2022-04-25] MEDS: VITAMINS A AND D TOPICAL OINTMENT 60 GM TUBE TP SCH ×2 (12:04→18:15)
[2022-04-25] MEDS: GABAPENTIN 300 MG CAPSULE PO SCH ×2 (13:42→21:06)
[2022-04-25] MEDS: THIAMINE HCL 100 MG TABLET (FP) PO SCH (21:06)
[2022-04-25] MEDS: traZODone HCL 50 MG TABLET (FP) PO SCH (21:07)
[2022-04-25] MEDS: MELATONIN 5 MG TABLETS PO SCH (21:07)
[2022-04-25] MEDS: INSULIN (LEVEMIR) 100 UNITS/ML UNITS SQ SCH (21:08)
[2022-04-26] MEDS: VITAMINS A AND D TOPICAL OINTMENT 60 GM TUBE TP SCH ×2 (02:02→07:17)
[2022-04-26] MEDS: GABAPENTIN 300 MG CAPSULE PO SCH ×3 (06:38→21:08)
[2022-04-26] MEDS: NICOTINE 10 MG CARTRIDGE (INHALER) IH PRN (06:39)
[2022-04-26] MEDS: INSULIN SLIDING SCALE (NOVOLOG) 1 VIAL SQ SCH ×4 (06:39→21:12)
[2022-04-26] MEDS: INSULIN (NOVOLOG) ASPART 100 UNITS/ML 10ML VIAL SQ SCH ×3 (06:39→16:48)
[2022-04-26] MEDS: amLODIPine BESYLATE 5 MG TABLET (FP) PO SCH (09:48)
[2022-04-26] MEDS: PRENATAL VITAMINS W/ FOLIC ACID TABLET (FP) PO SCH (09:48)
[2022-04-26] MEDS: risperiDONE 1 MG TABLET PO SCH ×2 (09:48→21:08)
[2022-04-26] MEDS: ACETAMINOPHEN 325 MG TABLET (FP) PO PRN (09:49)
[2022-04-26] MEDS: LISINOPRIL 10 MG TABLET PO SCH (09:49)
[2022-04-26] MEDS ORDERED: INSULIN (NOVOLOG) ASPART 100 UNITS/ML 10ML VIAL ONE ×2 (12:06→22:39)
[2022-04-26] MEDS: VITAMINS A AND D TOPICAL OINTMENT 60 GM TUBE TP PRN (13:27)
[2022-04-26] MEDS: COLLOIDAL OATMEAL 1 BAR EACH TP PRN (16:49)
[2022-04-26] MEDS: traZODone HCL 50 MG TABLET (FP) PO SCH (21:08)
[2022-04-26] MEDS: MELATONIN 5 MG TABLETS PO SCH (21:08)
[2022-04-26] MEDS: INSULIN (LEVEMIR) 100 UNITS/ML UNITS SQ SCH (21:09)
[2022-04-26] MEDS: THIAMINE HCL 100 MG TABLET (FP) PO SCH (21:12)
[2022-04-26] MEDS ORDERED: INSULIN (LEVEMIR) 100 UNITS/ML UNITS SQ ONE (22:39)
[2022-04-27] MEDS: GABAPENTIN 300 MG CAPSULE PO SCH ×3 (06:15→21:01)
[2022-04-27] MEDS: INSULIN SLIDING SCALE (NOVOLOG) 1 VIAL SQ SCH ×4 (06:16→21:03)
[2022-04-27] MEDS: INSULIN (NOVOLOG) ASPART 100 UNITS/ML 10ML VIAL SQ SCH ×3 (06:16→16:27)
[2022-04-27] MEDS: NICOTINE 10 MG CARTRIDGE (INHALER) IH PRN (06:35)
[2022-04-27] MEDS: risperiDONE 1 MG TABLET PO SCH ×2 (09:54→21:01)
[2022-04-27] MEDS: LISINOPRIL 10 MG TABLET PO SCH (09:54)
[2022-04-27] MEDS: FERROUS SO4 325 MG TABLET (FP) PO SCH (09:54)
[2022-04-27] MEDS: amLODIPine BESYLATE 5 MG TABLET (FP) PO SCH (09:54)
[2022-04-27] MEDS: PRENATAL VITAMINS W/ FOLIC ACID TABLET (FP) PO PRN (09:55)
[2022-04-27] MEDS: ACETAMINOPHEN 325 MG TABLET (FP) PO PRN (09:55)
[2022-04-27] MEDS: VITAMINS A AND D TOPICAL OINTMENT 60 GM TUBE TP PRN (13:23)
[2022-04-27] MEDS: THIAMINE HCL 100 MG TABLET (FP) PO SCH (21:01)
[2022-04-27] MEDS: MELATONIN 5 MG TABLETS PO SCH (21:01)
[2022-04-27] MEDS: hydrOXYzine PAMOATE 25 MG CAPSULE (FP) PO PRN (21:01)
[2022-04-27] MEDS: INSULIN (LEVEMIR) 100 UNITS/ML UNITS SQ SCH (21:03)
[2022-04-27] MEDS: traZODone HCL 50 MG TABLET (FP) PO SCH (21:03)
[2022-04-27] MEDS ORDERED: INSULIN (LEVEMIR) 100 UNITS/ML UNITS SQ ONE (22:04)
[2022-04-27] MEDS ORDERED: INSULIN (NOVOLOG) ASPART 100 UNITS/ML 10ML VIAL ONE (22:05)
[2022-04-28] MEDS: GABAPENTIN 300 MG CAPSULE PO SCH ×3 (06:24→21:06)
[2022-04-28] MEDS: NICOTINE 10 MG CARTRIDGE (INHALER) IH PRN (06:25)
[2022-04-28] MEDS: INSULIN (NOVOLOG) ASPART 100 UNITS/ML 10ML VIAL SQ SCH ×3 (07:50→16:48)
[2022-04-28] MEDS: INSULIN SLIDING SCALE (NOVOLOG) 1 VIAL SQ SCH ×4 (07:50→21:10)
[2022-04-28] MEDS ORDERED: INSULIN (NOVOLOG) ASPART 100 UNITS/ML 10ML VIAL ONE ×2 (07:52→16:24)
[2022-04-28] MEDS: risperiDONE 1 MG TABLET PO SCH ×2 (09:54→21:06)
[2022-04-28] MEDS: ACETAMINOPHEN 325 MG TABLET (FP) PO PRN (09:54)
[2022-04-28] MEDS: amLODIPine BESYLATE 5 MG TABLET (FP) PO SCH (09:54)
[2022-04-28] MEDS: LISINOPRIL 10 MG TABLET PO SCH (09:54)
[2022-04-28] MEDS: PRENATAL VITAMINS W/ FOLIC ACID TABLET (FP) PO PRN (09:55)
[2022-04-28] MEDS: traZODone HCL 50 MG TABLET (FP) PO SCH (21:06)
[2022-04-28] MEDS: MELATONIN 5 MG TABLETS PO SCH (21:06)
[2022-04-28] MEDS: THIAMINE HCL 100 MG TABLET (FP) PO SCH (21:06)
[2022-04-28] MEDS: INSULIN (LEVEMIR) 100 UNITS/ML UNITS SQ SCH (21:11)
[2022-04-28] MEDS ORDERED: INSULIN (LEVEMIR) 100 UNITS/ML UNITS SQ ONE (22:17)
[2022-04-29] MEDS: GABAPENTIN 300 MG CAPSULE PO SCH ×3 (06:19→21:15)
[2022-04-29] MEDS: VITAMINS A AND D TOPICAL OINTMENT 60 GM TUBE TP PRN (06:20)
[2022-04-29] MEDS: INSULIN SLIDING SCALE (NOVOLOG) 1 VIAL SQ SCH ×4 (07:50→22:07)
[2022-04-29] MEDS: INSULIN (NOVOLOG) ASPART 100 UNITS/ML 10ML VIAL SQ SCH ×3 (07:52→17:05)
[2022-04-29] MEDS ORDERED: INSULIN (NOVOLOG) ASPART 100 UNITS/ML 10ML VIAL ONE ×2 (07:52→11:57)
[2022-04-29] MEDS: NICOTINE 10 MG CARTRIDGE (INHALER) IH PRN ×2 (09:43→20:11)
[2022-04-29] MEDS: PRENATAL VITAMINS W/ FOLIC ACID TABLET (FP) PO PRN (09:44)
[2022-04-29] MEDS: risperiDONE 1 MG TABLET PO SCH ×2 (09:44→21:15)
[2022-04-29] MEDS: LISINOPRIL 10 MG TABLET PO SCH (09:45)
[2022-04-29] MEDS: amLODIPine BESYLATE 5 MG TABLET (FP) PO SCH (09:45)
[2022-04-29] MEDS: FERROUS SO4 325 MG TABLET (FP) PO SCH (09:45)
[2022-04-29] MEDS: ACETAMINOPHEN 325 MG TABLET (FP) PO PRN (09:46)
[2022-04-29] MEDS: traZODone HCL 50 MG TABLET (FP) PO SCH (21:15)
[2022-04-29] MEDS: THIAMINE HCL 100 MG TABLET (FP) PO SCH (21:15)
[2022-04-29] MEDS: MELATONIN 5 MG TABLETS PO SCH (21:15)
[2022-04-29] MEDS: INSULIN (LEVEMIR) 100 UNITS/ML UNITS SQ SCH (22:07)
[2022-04-30] MEDS: GABAPENTIN 300 MG CAPSULE PO SCH ×3 (06:25→21:14)
[2022-04-30] MEDS: INSULIN SLIDING SCALE (NOVOLOG) 1 VIAL SQ SCH ×4 (08:01→22:00)
[2022-04-30] MEDS: INSULIN (NOVOLOG) ASPART 100 UNITS/ML 10ML VIAL SQ SCH ×3 (08:01→16:54)
[2022-04-30] MEDS ORDERED: INSULIN (NOVOLOG) ASPART 100 UNITS/ML 10ML VIAL ONE ×2 (08:04→12:01)
[2022-04-30] MEDS: amLODIPine BESYLATE 5 MG TABLET (FP) PO SCH (09:37)
[2022-04-30] MEDS: risperiDONE 1 MG TABLET PO SCH ×2 (09:37→21:11)
[2022-04-30] MEDS: LISINOPRIL 10 MG TABLET PO SCH (09:37)
[2022-04-30] MEDS: PRENATAL VITAMINS W/ FOLIC ACID TABLET (FP) PO PRN (09:38)
[2022-04-30] MEDS: VITAMINS A AND D TOPICAL OINTMENT 60 GM TUBE TP PRN (09:39)
[2022-04-30] MEDS: ACETAMINOPHEN 325 MG TABLET (FP) PO PRN (09:39)
[2022-04-30] MEDS: NICOTINE 10 MG CARTRIDGE (INHALER) IH PRN (12:51)
[2022-04-30] MEDS: hydrOXYzine PAMOATE 25 MG CAPSULE (FP) PO PRN (21:11)
[2022-04-30] MEDS: THIAMINE HCL 100 MG TABLET (FP) PO SCH (21:11)
[2022-04-30] MEDS: traZODone HCL 50 MG TABLET (FP) PO SCH (21:11)
[2022-04-30] MEDS: INSULIN (LEVEMIR) 100 UNITS/ML UNITS SQ SCH (21:12)
[2022-04-30] MEDS: MELATONIN 5 MG TABLETS PO SCH (21:12)
[2022-04-30] MEDS: COLLOIDAL OATMEAL 1 BAR EACH TP PRN (21:14)
[2022-05-01] MEDS: GABAPENTIN 300 MG CAPSULE PO SCH ×3 (06:36→21:05)
[2022-05-01 06:53] VITALS: TEMP 97.1
[2022-05-01] MEDS: INSULIN SLIDING SCALE (NOVOLOG) 1 VIAL SQ SCH ×4 (07:51→21:10)
[2022-05-01] MEDS: INSULIN (NOVOLOG) ASPART 100 UNITS/ML 10ML VIAL SQ SCH ×3 (07:52→16:45)
[2022-05-01] MEDS ORDERED: INSULIN (NOVOLOG) ASPART 100 UNITS/ML 10ML VIAL ONE ×2 (07:55→23:18)
[2022-05-01] MEDS: risperiDONE 1 MG TABLET PO SCH ×2 (09:55→21:05)
[2022-05-01] MEDS: amLODIPine BESYLATE 5 MG TABLET (FP) PO SCH (09:55)
[2022-05-01] MEDS: LISINOPRIL 10 MG TABLET PO SCH (09:55)
[2022-05-01] MEDS: FERROUS SO4 325 MG TABLET (FP) PO SCH (09:55)
[2022-05-01] MEDS: ACETAMINOPHEN 325 MG TABLET (FP) PO PRN ×2 (09:56→16:47)
[2022-05-01] MEDS: PRENATAL VITAMINS W/ FOLIC ACID TABLET (FP) PO PRN (09:56)
[2022-05-01] MEDS: VITAMINS A AND D TOPICAL OINTMENT 60 GM TUBE TP PRN (09:58)
[2022-05-01] MEDS: NICOTINE 10 MG CARTRIDGE (INHALER) IH PRN (13:39)
[2022-05-01] MEDS: THIAMINE HCL 100 MG TABLET (FP) PO SCH (21:05)
[2022-05-01] MEDS: traZODone HCL 50 MG TABLET (FP) PO SCH (21:05)
[2022-05-01] MEDS: MELATONIN 5 MG TABLETS PO SCH (21:05)
[2022-05-01] MEDS: hydrOXYzine PAMOATE 25 MG CAPSULE (FP) PO PRN (21:05)
[2022-05-01] MEDS: INSULIN (LEVEMIR) 100 UNITS/ML UNITS SQ SCH (21:08)
[2022-05-01] MEDS ORDERED: INSULIN (LEVEMIR) 100 UNITS/ML UNITS SQ ONE (23:18)
[2022-05-02] MEDS: GABAPENTIN 300 MG CAPSULE PO SCH (06:12)
[2022-05-02] MEDS: INSULIN (NOVOLOG) ASPART 100 UNITS/ML 10ML VIAL SQ SCH (06:13)
[2022-05-02] MEDS: INSULIN SLIDING SCALE (NOVOLOG) 1 VIAL SQ SCH (06:14)
[2022-05-02] MEDS: COLLOIDAL OATMEAL 1 BAR EACH TP PRN (06:16)
[2022-05-02] MEDS ORDERED: INSULIN (NOVOLOG) ASPART 100 UNITS/ML 10ML VIAL ONE (06:34)
[2022-05-02] MEDS: NICOTINE 10 MG CARTRIDGE (INHALER) IH PRN (06:59)
[2022-05-02] MEDS: PRENATAL VITAMINS W/ FOLIC ACID TABLET (FP) PO PRN (09:01)
[2022-05-02] MEDS: risperiDONE 1 MG TABLET PO SCH (09:01)
[2022-05-02] MEDS: amLODIPine BESYLATE 5 MG TABLET (FP) PO SCH (09:01)
[2022-05-02] MEDS: LISINOPRIL 10 MG TABLET PO SCH (09:01)
[2022-05-02] MEDS: ACETAMINOPHEN 325 MG TABLET (FP) PO PRN (09:02)
[2022-05-02 09:43] VITALS: BP 144/72; PULSE 101; RESP 18
== END 2022-05-02 09:15 | disposition home or self-care (01) | DRG 772 ==
LOC: YASAS 12:14 → Y3E 12:15
PROVIDERS: ADMIT Allergy & Immunology; ATTEND Psychiatry & Neurology Pain Medicine
PROC: HZ42ZZZ Group Counseling for Substance Abuse Treatment, Cognitive-Behavioral (ICD-10-PCS; principal; 2022-04-10)
DX: F11.20 Opioid dependence, uncomplicated (principal); F14.20 Cocaine dependence, uncomplicated; F12.10 Cannabis abuse, uncomplicated; F17.210 Nicotine dependence, cigarettes, uncomplicated; F25.9 Schizoaffective disorder, unspecified; I10 Essential (primary) hypertension; J45.909 Unspecified asthma, uncomplicated; E11.65 Type 2 diabetes mellitus with hyperglycemia; Z79.4 Long term (current) use of insulin; Z89.611 Acquired absence of right leg above knee; Z99.89 Dependence on other enabling machines and devices
CPT/HCPCS: 36415; 82962; 85025; J2794; Q0162

== ENCOUNTER 2025-01-20 16:32 | Inpatient (IN) | payer OTHER ==
[2025-01-20 17:08] VITALS: BMI 35.2
[2025-01-20] MEDS ORDERED: guaiFENesin 600 MG TABLET.ER (FP) PO PRN (18:36)
[2025-01-20] MEDS ORDERED: P-EPHED 60MG/TRIPROLIDI 2.5MG TABLET PO PRN (18:36)
[2025-01-20] MEDS ORDERED: LOPERAMIDE HCL 2 MG CAPSULE PO PRN (18:36)
[2025-01-20] MEDS ORDERED: BENZONATATE 200 MG CAPSULE PO PRN (18:36)
[2025-01-20] MEDS ORDERED: POLYETHYLENE GLYCOL (HEALTHYLAX) 3350 17 GM PACKET PO PRN (18:36)
[2025-01-20] MEDS ORDERED: MAG HYDROX/AL HYDROX/SIMETH 30 ML UNIT-DOSE CUP PO PRN (18:36)
[2025-01-20] MEDS ORDERED: BENZOCAINE/MENTHOL (CHLORASEPTIC ) LOZENGE MM PRN (18:36)
[2025-01-20] MEDS ORDERED: NALOXONE (NARCAN) HCL 4 MG/0.1 ML SPRAY NS PRN (18:36)
[2025-01-20] MEDS ORDERED: MAGNESIUM HYDROX 2400MG/30ML ORAL SUSPENSION 30 ML CUP PO PRN (18:36)
[2025-01-20] MEDS ORDERED: NICOTINE POLACRILEX 2 MG LOZENGE BC PRN (18:36)
[2025-01-20] MEDS ORDERED: ACETAMINOPHEN 325 MG TABLET (FP) PO PRN (18:36)
[2025-01-20] MEDS ORDERED: TUBERCULIN PPD 5 TU/0.1ML SYRINGE (IN PATIENT USE ONLY) ID ONE (22:37)
[2025-01-21] MEDS: MELATONIN 5 MG TABLETS PO SCH (00:27)
[2025-01-21] MEDS: THIAMINE 100 MG TABLET PO SCH (00:27)
[2025-01-21] MEDS ORDERED: INSULIN (NOVOLOG) ASPART 100 UNITS/ML 10ML VIAL SQ ONE (00:30)
[2025-01-21] MEDS: INSULIN ASPART SLIDING SCALE (NOVOLOG) 1 VIAL SQ SCH (00:31)
[2025-01-21] MEDS ORDERED: VITAMINS A AND D TOPICAL OINTMENT TP PRN (08:41)
[2025-01-21] MEDS: PRENATAL VITAMINS W/ FOLIC ACID TABLET (FP) PO SCH (09:50)
[2025-01-21] MEDS: LISINOPRIL 10 MG TABLET PO SCH (09:50)
[2025-01-21] MEDS: TUBERCULIN PPD 5 TU/0.1ML SYRINGE (IN PATIENT USE ONLY) ID ONE (09:54)
[2025-01-21] MEDS: BUPRENORPHINE/NALOXONE 4 MG/1 MG FILM PACKET SL ONE (10:13)
[2025-01-21 10:54] LABS: MCHC 30.1 g/dl (32.3-36.5); MEAN CELL VOLUME 86.9 fl (79.0-92.2); MEAN PLT VOLUME 9.7 fl (9.4-12.4); RDW 14.1 % (12.2-16.1)
[2025-01-21] MEDS: DIVALPROEX SODIUM 500 MG TABLET E.C. PO SCH (12:01)
[2025-01-21 12:42] LABS: GLUCOSE,RANDOM 311 mg/dL (74-106); TOT PROT 5.6 g/dl (6.4-8.2)
[2025-01-21 12:43] LABS: CO2 22 mmol/L (21-32)
[2025-01-21 12:45] LABS: ALK PHOS 108 U/L (40-150)
[2025-01-21 12:47] LABS: CREATININE 4.90 mg/dL (0.55-1.3); SGOT/AST 24 U/L (5-34); SGPT/ALT 20 U/L (0-55)
[2025-01-21 12:49] LABS: EPI CELLS >36 /uL (0-25.1); HYALINE CASTS 1 /uL (0-3.1); URINE APPEARANCE TURBID; URINE BACTERIA >9,000 /uL (0-1359); URINE BILIRUBIN NEGATIVE (NEGATIVE); URINE COLOR YELLOW; URINE GLUCOSE (UA) 2+ (NEGATIVE); URINE KETONE NEGATIVE (NEGATIVE); URINE LEUK ESTERASE 3+ (NEGATIVE); URINE NITRITE NEGATIVE (NEGATIVE); URINE PROTEIN 3+ (NEGATIVE); URINE UROBILINOGEN 0.2 mg/dL (0.2-1.0); URINE WBC 3399 /uL (0-25.8)
[2025-01-21 12:56] LABS: URINE RBC 81.5 /uL (0-23.9); YEAST RARE (NEGATIVE)
[2025-01-21] MEDS: BUPRENORPHINE/NALOXONE 4 MG/1 MG FILM PACKET SL SCH (18:51)
[2025-01-22] MEDS ORDERED: INSULIN ASPART SLIDING SCALE (NOVOLOG) 1 VIAL SQ ONE (06:39)
[2025-01-22] MEDS: NICOTINE 21 MG/24 HOURS TOPICAL PATCH TD SCH (13:40)
[2025-01-22] MEDS: POTASSIUM CHLORIDE TABS 20 MEQ TABLET.ER (FP) PO SCH (14:38)
[2025-01-22] MEDS: AMOX TR/POT CLAV 250MG/125MG TABLETS PO SCH (17:52)
[2025-01-23] MEDS ORDERED: INSULIN ASPART SLIDING SCALE (NOVOLOG) 1 VIAL SQ ONE (06:23)
[2025-01-23 10:14] LABS: GLUCOSE,RANDOM 330.0 mg/dL (74-106)
[2025-01-23 10:15] LABS: TOT PROT 5.2 g/dl (6.4-8.2)
[2025-01-23 10:16] LABS: CO2 23.0 mmol/L (21-32)
[2025-01-23 10:17] LABS: ALK PHOS 112.0 U/L (40-150)
[2025-01-23 10:20] LABS: CREATININE 3.89 mg/dL (0.55-1.3); SGOT/AST 28.0 U/L (5-34); SGPT/ALT 37.0 U/L (0-55)
[2025-01-23] MEDS: INSULIN (NOVOLOG) ASPART 100 UNITS/ML 10ML VIAL SQ SCH ×2 (11:56→14:00)
[2025-01-23 13:38] LABS: HCV DIAGNOSTIC IN-HOUSE W/RFLX NON-REACTIVE (NONREACTIVE)
[2025-01-23 13:42] LABS: SYPHILIS W/ RPR CONF NON-REACTIVE (NONREACTIVE)
[2025-01-23] MEDS: MIRTAZAPINE 15 MG TABLET (FP) PO SCH (21:35)
[2025-01-23] MEDS: INSULIN GLARGINE (LANTUS) 100 UNITS/ML UNITS SQ SCH (21:51)
[2025-01-23] MEDS ORDERED: INSULIN GLARGINE (LANTUS) 100 UNITS/ML UNITS SQ SCH (22:00)
[2025-01-25] MEDS ORDERED: INSULIN ASPART SLIDING SCALE (NOVOLOG) 1 VIAL SQ ONE ×2 (06:25→11:43)
[2025-01-25 13:23] LABS: GLUCOSE,RANDOM 349 mg/dL (74-106)
[2025-01-25 13:24] LABS: CO2 22 mmol/L (21-32)
[2025-01-25 13:29] LABS: CREATININE 3.30 mg/dL (0.55-1.3)
[2025-01-25] MEDS: NITROFURANTOIN MACROCRYSTAL 50 MG CAPSULE (FP) PO SCH (13:41)
[2025-01-25] MEDS: SODIUM POLYSTYRENE SULFONATE 15 GM/60 ML BOTTLE PO ONE ×2 (14:16→22:17)
[2025-01-26] MEDS ORDERED: INSULIN ASPART SLIDING SCALE (NOVOLOG) 1 VIAL SQ ONE (07:57)
[2025-01-26 10:26] LABS: GLUCOSE,RANDOM 281 mg/dL (74-106)
[2025-01-26 10:27] LABS: CO2 20 mmol/L (21-32)
[2025-01-26 10:32] LABS: CREATININE 3.33 mg/dL (0.55-1.3)
[2025-01-26] MEDS ORDERED: PATIENT'S OWN MEDICATION (NON-FORMULARY) (Albuterol Sulfate [Proair Respiclick] 90 MCG Aer IH SCH (11:00)
[2025-01-26] MEDS: SODIUM POLYSTYRENE SULFONATE 15 GM/60 ML BOTTLE PO ONE (12:17)
[2025-01-26] MEDS: SODIUM ZIRCONIUM CYCLOSILICATE (LOKELMA) 5 GM PACKET PO SCH ×2 (13:45→17:19)
[2025-01-26] MEDS: amLODIPine BESYLATE 2.5 MG TABLET (FP) PO SCH (14:46)
[2025-01-27] MEDS ORDERED: INSULIN ASPART SLIDING SCALE (NOVOLOG) 1 VIAL SQ ONE (07:34)
[2025-01-27] MEDS: NICOTINE POLACRILEX 2 MG GUM BUC PRN (08:38)
[2025-01-27] MEDS: ALBUTEROL SO4 HFA INHALER IH PRN (08:43)
[2025-01-27] MEDS ORDERED: LISINOPRIL 5 MG TABLET PO SCH (10:00)
[2025-01-27] MEDS: LISINOPRIL 10 MG TABLET PO SCH (10:26)
[2025-01-27] MEDS: MIRTAZAPINE 15 MG TABLET (FP) PO SCH (21:32)
[2025-01-27] MEDS: traZODone HCL 50 MG TABLET (FP) PO SCH (21:32)
[2025-01-28] MEDS ORDERED: INSULIN ASPART SLIDING SCALE (NOVOLOG) 1 VIAL SQ ONE (07:47)
[2025-01-28] MEDS: NICOTINE 21 MG/24 HOURS TOPICAL PATCH TD SCH (10:36)
[2025-01-28] MEDS: NICOTINE POLACRILEX 2 MG GUM BUC PRN (14:26)
[2025-01-28] MEDS ORDERED: DOCUSATE SODIUM 100 MG CAPSULE (FP) PO PRN (15:29)
[2025-01-28] MEDS: amLODIPine BESYLATE 5 MG TABLET (FP) PO ONE (16:01)
[2025-01-28] MEDS: BUPRENORPHINE/NALOXONE 4 MG/1 MG FILM PACKET SL SCH (17:04)
[2025-01-28] MEDS ORDERED: INSULIN GLARGINE (LANTUS) 100 UNITS/ML UNITS SQ ONE (20:58)
[2025-01-28] MEDS: ATORVASTATIN CA 40 MG TABLET (FP) PO SCH (21:06)
[2025-01-28] MEDS: INSULIN GLARGINE (LANTUS) 100 UNITS/ML UNITS SQ SCH (21:07)
[2025-01-29] MEDS ORDERED: INSULIN ASPART SLIDING SCALE (NOVOLOG) 1 VIAL SQ ONE ×2 (07:35→11:52)
[2025-01-29] MEDS: amLODIPine BESYLATE 10 MG TABLET (FP) PO SCH (09:54)
[2025-01-29] MEDS: CLOPIDOGREL BISULFATE 75 MG TABLET (FP) PO SCH (09:54)
[2025-01-29] MEDS ORDERED: SODIUM ZIRCONIUM CYCLOSILICATE (LOKELMA) 10 GM PACKET PO SCH (10:17)
[2025-01-29] MEDS: SODIUM ZIRCONIUM CYCLOSILICATE (LOKELMA) 10 GM PACKET PO SCH (10:38)
[2025-01-29] MEDS: hydrOXYzine PAMOATE 25 MG CAPSULE (FP) PO PRN (15:53)
[2025-01-30] MEDS ORDERED: INSULIN ASPART SLIDING SCALE (NOVOLOG) 1 VIAL SQ ONE (11:52)
[2025-01-30] MEDS ORDERED: MINERAL OIL/PETROLAT/WATER TOPICAL CREAM 113 GM JAR TP PRN (13:00)
[2025-01-31] MEDS ORDERED: INSULIN ASPART SLIDING SCALE (NOVOLOG) 1 VIAL SQ ONE ×3 (08:07→12:03)
[2025-01-31 12:05] VITALS: BP 134/65; PULSE 88; RESP 18; TEMP 97.8
== END 2025-01-31 23:00 | disposition short-term general hospital (02) | DRG 772 ==
LOC: YASAS 16:32 → Y3N 01-21 00:54 → Y3NR 01-21 04:07 → Y3W 01-21 11:20
PROVIDERS: ADMIT Allergy & Immunology; ATTEND Psychiatry & Neurology Pain Medicine
PROC: HZ42ZZZ Group Counseling for Substance Abuse Treatment, Cognitive-Behavioral (ICD-10-PCS; principal; 2025-01-21)
DX: F14.20 Cocaine dependence, uncomplicated (principal); F11.20 Opioid dependence, uncomplicated; F12.20 Cannabis dependence, uncomplicated; F17.210 Nicotine dependence, cigarettes, uncomplicated; F25.0 Schizoaffective disorder, bipolar type; E87.5 Hyperkalemia; E10.65 Type 1 diabetes mellitus with hyperglycemia; Z79.4 Long term (current) use of insulin; I10 Essential (primary) hypertension; N39.0 Urinary tract infection, site not specified; Z16.12 Extended spectrum beta lactamase (ESBL) resistance; Z89.511 Acquired absence of right leg below knee; Z89.412 Acquired absence of left great toe; Z99.89 Dependence on other enabling machines and devices
CPT/HCPCS: 36415; 80048; 80053; 80164; 81003; 82962; 83036; 84132; 85027; 86780; 86803; 87086; 93005; 93010

== ENCOUNTER 2025-02-06 16:24 | Inpatient (IN) | payer OTHER ==
[2025-02-06] MEDS ORDERED: ALBUTEROL SO4 2.5/IPRATROPIUM 0.5 INH SOL 3 ML VIAL.NEB. NEB ONE ×2 (17:28→18:35)
[2025-02-06] MEDS: ALBUTEROL SO4 2.5/IPRATROPIUM 0.5 INH SOL 3 ML VIAL.NEB. NEB SCH (17:30)
[2025-02-06] MEDS: BUPRENORPHINE/NALOXONE 4 MG/1 MG FILM PACKET SL ONE (18:15)
[2025-02-06 18:19] LABS: GLUCOSE,RANDOM 427 mg/dL (74-106); TOT PROT 6.8 g/dl (6.4-8.2)
[2025-02-06 18:20] LABS: CO2 16 mmol/L (21-32)
[2025-02-06 18:22] LABS: ALK PHOS 121 U/L (40-150)
[2025-02-06 18:24] LABS: SGOT/AST 30 U/L (5-34); SGPT/ALT 21 U/L (0-55)
[2025-02-06 18:25] LABS: EPI CELLS 0 /uL (0-25.1); HYALINE CASTS 0 /uL (0-3.1); URINE APPEARANCE CLEAR; URINE BACTERIA 178 /uL (0-1359); URINE BILIRUBIN NEGATIVE (NEGATIVE); URINE COLOR YELLOW; URINE GLUCOSE (UA) 2+ (NEGATIVE); URINE KETONE NEGATIVE (NEGATIVE); URINE LEUK ESTERASE 1+ (NEGATIVE); URINE NITRITE NEGATIVE (NEGATIVE); URINE PROTEIN 3+ (NEGATIVE); URINE RBC 39 /uL (0-23.9); URINE UROBILINOGEN 0.2 mg/dL (0.2-1.0); URINE WBC 670 /uL (0-25.8)
[2025-02-06 18:25] LABS: CREATININE 4.30 mg/dL (0.55-1.3)
[2025-02-06 18:36] LABS: YEAST FEW (NEGATIVE)
[2025-02-06] MEDS ORDERED: BUPRENORPHINE/NALOXONE 2 MG/0.5 MG FILM PACKET ONE (18:39)
[2025-02-06 18:40] LABS: INR 1.16 (0.83-1.09); PROTHROMBIN TIME (PATIENT) 12.6 SEC (9.7-13.0)
[2025-02-06 18:43] LABS: ACTIVATED PTT 27.1 SECONDS (25.2-36.5)
[2025-02-06 19:09] LABS: BG HCT 21.0 % (35.4-49); VENOUS BASE EXCESS -7.9 mmol/L (-2-2); VENOUS O2 SATURATION 81.4 % (70-80); VENOUS PCO2 39.8 mmHg (38-52); VENOUS PH 7.279 (7.310-7.410)
[2025-02-06] MEDS: INSULIN REGULAR HUMAN 100 UNITS/ML *VIAL IVPUSH ONE (19:17)
[2025-02-06] MEDS ORDERED: SODIUM ZIRCONIUM CYCLOSILICATE (LOKELMA) 10 GM PACKET ONE (19:24)
[2025-02-06] MEDS ORDERED: FUROSEMIDE 40 MG/4 ML INJECTABLE VIAL ONE (19:24)
[2025-02-06 19:33] LABS: ABSOLUTE IMMATURE GRANULOCYTES 0.90 x10^3/uL (0.0-0.031); BASOPHILS # 0.03 x10^3/uL (0.01-0.08); EOSINOPHIL % 5.6 % (0.8-7.0); EOSINOPHILS # 0.61 x10^3/uL (0.04-0.54); MCHC 30.5 g/dl (32.3-36.5); MEAN CELL VOLUME 86.6 fl (79.0-92.2); MEAN PLT VOLUME 9.6 fl (9.4-12.4); MONOCYTE # 1.42 x10^3/uL (0.30-0.82); MONOCYTE % 13.1 % (5.3-12.2); RDW 15.8 % (12.2-16.1)
[2025-02-06] MEDS: FUROSEMIDE 40 MG/4 ML INJECTABLE VIAL IVPUSH ONE (19:36)
[2025-02-06] MEDS: SODIUM ZIRCONIUM CYCLOSILICATE (LOKELMA) 5 GM PACKET PO SCH (19:43)
[2025-02-06 19:51] LABS: GLUCOSE,RANDOM 444 mg/dL (74-106)
[2025-02-06 19:52] LABS: TOT PROT 6.1 g/dl (6.4-8.2)
[2025-02-06 19:53] LABS: CO2 14 mmol/L (21-32)
[2025-02-06 19:54] LABS: ALK PHOS 116 U/L (40-150)
[2025-02-06 19:57] LABS: CREATININE 4.40 mg/dL (0.55-1.3); SGOT/AST 15 U/L (5-34); SGPT/ALT 20 U/L (0-55)
[2025-02-06] MEDS: BUDESONIDE/FORMETEROL FUMARATE 80/4.5 mcg INHALER IH ONE (21:40)
[2025-02-06 21:47] LABS: ARTERIAL BLD GAS O2 SATURATION 93.2 % (95-98); ARTERIAL BLOOD GAS BASE EXCESS -7.9 mmol/L (-2-2); ARTERIAL BLOOD GAS PCO2 37.00 mmHg (35-45); ARTERIAL BLOOD GAS PO2 72.4 mmHg (80-100); BG HCT 30.0 % (35.4-49); O2 CONTENT 1.33 % vol
[2025-02-06 21:49] LABS: ALLENS TEST POSITIVE
[2025-02-06 22:04] LABS: GLUCOSE,RANDOM 472 mg/dL (74-106)
[2025-02-06 22:05] LABS: CO2 14 mmol/L (21-32)
[2025-02-06 22:09] LABS: CREATININE 4.46 mg/dL (0.55-1.3)
[2025-02-07] MEDS: INSULIN (NOVOLOG) ASPART 100 UNITS/ML 10ML VIAL SQ ONE ×3 (00:20→10:06)
[2025-02-07] MEDS: MEROPENEM 1 GM in DEXTROSE 5%-WATER 100 ML IVPB SCH (02:15)
[2025-02-07] MEDS: INSULIN ASPART SLIDING SCALE (NOVOLOG) 1 VIAL SQ SCH ×2 (02:28→10:35)
[2025-02-07] MEDS: LINEZOLID 600 MG PREMIX BAG 600 MG/300 ML BAG IVPB SCH (03:19)
[2025-02-07] MEDS: SODIUM ZIRCONIUM CYCLOSILICATE (LOKELMA) 5 GM PACKET PO ONE (08:27)
[2025-02-07 08:43] LABS: ABSOLUTE IMMATURE GRANULOCYTES 1.03 x10^3/uL (0.0-0.031); BASOPHILS # 0.05 x10^3/uL (0.01-0.08); EOSINOPHIL % 5.4 % (0.8-7.0); EOSINOPHILS # 0.58 x10^3/uL (0.04-0.54); MCHC 30.3 g/dl (32.3-36.5); MEAN CELL VOLUME 86.8 fl (79.0-92.2); MEAN PLT VOLUME 9.2 fl (9.4-12.4); MONOCYTE # 1.48 x10^3/uL (0.30-0.82); MONOCYTE % 13.8 % (5.3-12.2); RDW 15.7 % (12.2-16.1)
[2025-02-07] MEDS ORDERED: ALBUTEROL SO4 HFA INHALER IH PRN (08:46)
[2025-02-07 09:10] LABS: GLUCOSE,RANDOM 249.0 mg/dL (74-106)
[2025-02-07 09:11] LABS: CO2 14.0 mmol/L (21-32)
[2025-02-07 09:16] LABS: CREATININE 4.54 mg/dL (0.55-1.3); IRON SERUM 59.0 ug/dL (50-175)
[2025-02-07] MEDS: BUPRENORPHINE/NALOXONE 4 MG/1 MG FILM PACKET SL SCH (09:46)
[2025-02-07] MEDS: INSULIN GLARGINE (LANTUS) 100 UNITS/ML UNITS SQ ONE ×2 (09:59→21:38)
[2025-02-07] MEDS: FUROSEMIDE 40 MG/4 ML INJECTABLE VIAL IVPUSH SCH (10:06)
[2025-02-07] MEDS: DIVALPROEX SODIUM 500 MG TABLET E.C. PO SCH ×2 (10:34→21:38)
[2025-02-07] MEDS: INSULIN (NOVOLOG) ASPART 100 UNITS/ML 10ML VIAL SQ SCH (10:34)
[2025-02-07] MEDS: HEPARIN NA (PORCINE) 5,000 UNITS/ML 1ML VIAL SQ SCH (14:24)
[2025-02-07 17:34] LABS: EPI CELLS 26 /uL (0-25.1); HYALINE CASTS 1 /uL (0-3.1); URINE APPEARANCE CLEAR; URINE BACTERIA 35 /uL (0-1359); URINE BILIRUBIN NEGATIVE (NEGATIVE); URINE COLOR YELLOW; URINE GLUCOSE (UA) 1+ (NEGATIVE); URINE KETONE NEGATIVE (NEGATIVE); URINE LEUK ESTERASE 2+ (NEGATIVE); URINE NITRITE NEGATIVE (NEGATIVE); URINE PROTEIN 3+ (NEGATIVE); URINE RBC 27 /uL (0-23.9); URINE UROBILINOGEN 0.2 mg/dL (0.2-1.0); URINE WBC 415 /uL (0-25.8)
[2025-02-07] MEDS: SODIUM ZIRCONIUM CYCLOSILICATE (LOKELMA) 5 GM PACKET PO SCH (21:29)
[2025-02-07] MEDS: FUROSEMIDE 40 MG/4 ML INJECTABLE VIAL IVPUSH ONE (22:06)
[2025-02-07] MEDS ORDERED: INSULIN (NOVOLOG) ASPART 100 UNITS/ML 10ML VIAL SQ ONE (22:41)
[2025-02-08 00:14] LABS: MCHC 30.6 g/dl (32.3-36.5); MEAN CELL VOLUME 86.1 fl (79.0-92.2); MEAN PLT VOLUME 9.8 fl (9.4-12.4); RDW 15.8 % (12.2-16.1)
[2025-02-08 10:05] LABS: GLUCOSE,RANDOM 253.0 mg/dL (74-106)
[2025-02-08 10:06] LABS: CO2 17.0 mmol/L (21-32)
[2025-02-08 10:11] LABS: CREATININE 4.88 mg/dL (0.55-1.3)
[2025-02-08] MEDS: SODIUM BICARBONATE 650 MG TABLET PO SCH (17:41)
[2025-02-08 18:29] LABS: MCHC 30.6 g/dl (32.3-36.5); MEAN CELL VOLUME 84.8 fl (79.0-92.2); MEAN PLT VOLUME 9.1 fl (9.4-12.4); RDW 15.5 % (12.2-16.1)
[2025-02-08] MEDS: INSULIN GLARGINE (LANTUS) 100 UNITS/ML UNITS SQ SCH (21:05)
[2025-02-08] MEDS ORDERED: MEROPENEM 1 GM in DEXTROSE 5%-WATER 100 ML IVPB SCH (22:00)
[2025-02-08] MEDS ORDERED: LINEZOLID 600 MG PREMIX BAG 600 MG/300 ML BAG IVPB SCH (22:00)
[2025-02-09 06:55] LABS: MCHC 31.3 g/dl (32.3-36.5); MEAN CELL VOLUME 86.0 fl (79.0-92.2); MEAN PLT VOLUME 9.0 fl (9.4-12.4); RDW 15.5 % (12.2-16.1)
[2025-02-09 07:19] LABS: GLUCOSE,RANDOM 203.0 mg/dL (74-106)
[2025-02-09 07:21] LABS: CO2 17.0 mmol/L (21-32)
[2025-02-09 07:25] LABS: CREATININE 4.82 mg/dL (0.55-1.3)
[2025-02-09] MEDS: FUROSEMIDE 40 MG/4 ML INJECTABLE VIAL IVPUSH ONE (20:02)
[2025-02-10 06:52] LABS: MCHC 31.0 g/dl (32.3-36.5); MEAN CELL VOLUME 85.4 fl (79.0-92.2); MEAN PLT VOLUME 9.1 fl (9.4-12.4); RDW 15.5 % (12.2-16.1)
[2025-02-10 07:19] LABS: GLUCOSE,RANDOM 200.0 mg/dL (74-106); TOT PROT 6.2 g/dl (6.4-8.2)
[2025-02-10 07:20] LABS: CO2 18.0 mmol/L (21-32)
[2025-02-10 07:22] LABS: ALK PHOS 104.0 U/L (40-150)
[2025-02-10 07:24] LABS: CREATININE 4.88 mg/dL (0.55-1.3); SGOT/AST 16.0 U/L (5-34); SGPT/ALT 14.0 U/L (0-55)
[2025-02-10 13:09] LABS: MICROALBUMIN/CREATININE RATIO 3709.0 mg/g creat (0-29)
[2025-02-10] MEDS ORDERED: MIDAZOLAM HCL 2 MG/2 ML SINGLE DOSE VIAL ONE (14:45)
[2025-02-10] MEDS ORDERED: PROPOFOL 80 ML ONE (14:45)
[2025-02-10] MEDS ORDERED: BUPIVACAINE HCL/PF 0.5% (5MG/ML) 10 ML VIAL ONE (14:56)
[2025-02-10] MEDS ORDERED: LIDOCAINE HCL 1%, 10 MG/ML (20ML VIAL) ONE (15:06)
[2025-02-10] MEDS ORDERED: PROPOFOL 40 ML ONE (15:35)
[2025-02-10] MEDS ORDERED: PAPAVERINE HCL 30 MG/1 ML 10 ML VIAL NR ONE (15:48)
[2025-02-10] MEDS ORDERED: PROPOFOL 20 ML ONE (16:02)
[2025-02-10] MEDS ORDERED: ONDANSETRON 4 MG/2 ML VIAL IVPUSH PRN (16:50)
[2025-02-10] MEDS ORDERED: ACETAMINOPHEN INJECTION 100 ML ONE (17:07)
[2025-02-10] MEDS: ACETAMINOPHEN 1000 MG/100 ML BAG IVPB ONE (17:12)
[2025-02-10] MEDS: LACTATED RINGERS SOLUTION 1,000 ML IV SCH (17:13)
[2025-02-10] MEDS ORDERED: ALBUTEROL SO4 HFA INHALER IH PRN (17:16)
[2025-02-10] MEDS ORDERED: SEVELAMER CARBONATE 800 MG TAB (FP) PO SCH (17:30)
[2025-02-10] MEDS: EPOETIN ALFA-EPBX 10,000 UNIT/ML VIAL SQ ONE ×2 (17:45→20:57)
[2025-02-10] MEDS ORDERED: CEFAZOLIN 500 MG in DEXTROSE 5%-WATER - 50 ML IVPB SCH (18:00)
[2025-02-10] MEDS: SEVELAMER CARBONATE 800 MG TAB (FP) PO SCH (18:26)
[2025-02-10] MEDS: BUPRENORPHINE/NALOXONE 4 MG/1 MG FILM PACKET SL SCH (18:27)
[2025-02-10] MEDS: SODIUM ZIRCONIUM CYCLOSILICATE (LOKELMA) 5 GM PACKET PO SCH (20:02)
[2025-02-10] MEDS: CEFAZOLIN 500 MG in DEXTROSE 5%-WATER - 50 ML IVPB SCH (20:03)
[2025-02-10] MEDS: DIVALPROEX SODIUM 500 MG TABLET E.C. PO SCH (21:30)
[2025-02-10] MEDS: SODIUM BICARBONATE 650 MG TABLET PO SCH (21:30)
[2025-02-10] MEDS: INSULIN GLARGINE (LANTUS) 100 UNITS/ML UNITS SQ SCH (21:30)
[2025-02-10] MEDS: INSULIN (NOVOLOG) ASPART 100 UNITS/ML 10ML VIAL SQ ONE (23:20)
[2025-02-11] MEDS: INSULIN (NOVOLOG) ASPART 100 UNITS/ML 10ML VIAL SQ SCH (06:13)
[2025-02-11] MEDS: INSULIN ASPART SLIDING SCALE (NOVOLOG) 1 VIAL SQ SCH (06:16)
[2025-02-11] MEDS: ACETAMINOPHEN 500 MG TABLET (FP) PO PRN (06:20)
[2025-02-11 06:36] LABS: MCHC 31.3 g/dl (32.3-36.5); MEAN CELL VOLUME 83.8 fl (79.0-92.2); MEAN PLT VOLUME 8.8 fl (9.4-12.4); RDW 15.2 % (12.2-16.1)
[2025-02-11 06:57] LABS: GLUCOSE,RANDOM 205.0 mg/dL (74-106); TOT PROT 6.4 g/dl (6.4-8.2)
[2025-02-11 06:58] LABS: CO2 18.0 mmol/L (21-32)
[2025-02-11 07:00] LABS: ALK PHOS 104.0 U/L (40-150)
[2025-02-11 07:03] LABS: CREATININE 4.58 mg/dL (0.55-1.3); SGOT/AST 19.0 U/L (5-34); SGPT/ALT 13.0 U/L (0-55)
[2025-02-11] MEDS: FUROSEMIDE 40 MG/4 ML INJECTABLE VIAL IVPUSH SCH (08:43)
[2025-02-11] MEDS: MULTIVITAMINS (DAILY MVI) TABLET (FP) PO SCH (09:39)
[2025-02-11] MEDS ORDERED: FUROSEMIDE 40 MG/4 ML INJECTABLE VIAL IVPUSH SCH (10:00)
[2025-02-11] MEDS ORDERED: EPOETIN ALFA-EPBX 10,000 UNIT/ML VIAL SQ ONE (12:54)
[2025-02-11] MEDS: SODIUM ZIRCONIUM CYCLOSILICATE (LOKELMA) 5 GM PACKET PO SCH (20:45)
[2025-02-11] MEDS: traZODone HCL 50 MG TABLET (FP) PO PRN (22:40)
[2025-02-11] MEDS: DIVALPROEX SODIUM 500 MG TABLET E.C. PO SCH (22:40)
[2025-02-11] MEDS: SODIUM BICARBONATE 650 MG TABLET PO SCH (22:40)
[2025-02-11] MEDS: INSULIN GLARGINE (LANTUS) 100 UNITS/ML UNITS SQ SCH (22:41)
[2025-02-12] MEDS: CEFAZOLIN 500 MG in DEXTROSE 5%-WATER - 50 ML IVPB SCH (02:42)
[2025-02-12] MEDS: BUPRENORPHINE/NALOXONE 4 MG/1 MG FILM PACKET SL SCH (06:13)
[2025-02-12] MEDS: INSULIN ASPART SLIDING SCALE (NOVOLOG) 1 VIAL SQ SCH (06:31)
[2025-02-12] MEDS: ALBUTEROL SO4 HFA INHALER IH PRN (06:42)
[2025-02-12] MEDS: INSULIN (NOVOLOG) ASPART 100 UNITS/ML 10ML VIAL SQ SCH (07:42)
[2025-02-12] MEDS: SEVELAMER CARBONATE 800 MG TAB (FP) PO SCH (08:31)
[2025-02-12] MEDS: MULTIVITAMINS (DAILY MVI) TABLET (FP) PO SCH (09:24)
[2025-02-12] MEDS: FUROSEMIDE 40 MG/4 ML INJECTABLE VIAL IVPUSH SCH (09:24)
[2025-02-12] MEDS: EPOETIN ALFA-EPBX 10,000 UNIT/ML VIAL SQ ONE (13:12)
[2025-02-12] MEDS: CEPHALEXIN MONOHYDRATE 500 MG CAPSULE (UD) PO SCH (22:14)
[2025-02-13] MEDS: FUROSEMIDE 40 MG TABLET (FP) PO SCH (09:38)
[2025-02-14] MEDS ORDERED: INSULIN ASPART SLIDING SCALE (NOVOLOG) 1 VIAL SQ ONE (06:29)
[2025-02-14] MEDS: LIDOCAINE 4% PATCH TP SCH (17:02)
[2025-02-14] MEDS: ACETAMINOPHEN 500 MG TABLET (FP) PO PRN (17:31)
[2025-02-14] MEDS: LIDOCAINE PATCH REMOVAL MC SCH (21:47)
[2025-02-15 13:34] VITALS: BMI 34.4
[2025-02-15 19:27] VITALS: RESP 18
[2025-02-16 10:43] LABS: GLUCOSE,RANDOM 221.0 mg/dL (74-106)
[2025-02-16 10:45] LABS: CO2 18.0 mmol/L (21-32)
[2025-02-16 10:49] LABS: CREATININE 4.44 mg/dL (0.55-1.3)
[2025-02-17 13:02] VITALS: BP 168/72; PULSE 106; TEMP 98.1
== END 2025-02-17 13:05 | disposition home or self-care (01) | DRG 405 ==
LOC: JER 16:24 → JERBED 19:54 → J4W 22:50 → J6S 02-11 19:23
PROVIDERS: ADMIT Internal Medicine; ATTEND Internal Medicine
PROC: 03170AF Bypass Right Brachial Artery to Lower Arm Vein with Autologous Arterial Tissue, Open Approach (ICD-10-PCS; principal; 2025-02-10 15:00)
DX: E87.79 Other fluid overload (principal); E87.29 Other acidosis; N17.9 Acute kidney failure, unspecified; E87.5 Hyperkalemia; I12.9 Hypertensive chronic kidney disease with stage 1 through stage 4 chronic kidney disease, or unspecified chronic kidney disease; E11.22 Type 2 diabetes mellitus with diabetic chronic kidney disease; N18.32 Chronic kidney disease, stage 3b; E83.39 Other disorders of phosphorus metabolism; F11.20 Opioid dependence, uncomplicated; L03.116 Cellulitis of left lower limb; F31.9 Bipolar disorder, unspecified; D63.1 Anemia in chronic kidney disease; E66.89 Other obesity not elsewhere classified; Z68.34 Body mass index [BMI] 34.0-34.9, adult; F14.10 Cocaine abuse, uncomplicated; R82.71 Bacteriuria; Z89.511 Acquired absence of right leg below knee
CPT/HCPCS: 36415; 36430; 36600; 71045-TC-FY; 76775-TC; 76856-TC; 76937; 80048; 80053; 81003; 82010; 82043; 82272; 82306; 82550; 82570; 82728; 82803; 82962; 83540; 83550; 83605; 83735; 83880; 84100; 84156; 84484; 85025; 85027; 85379; 85610; 85651; 85730; 86038; 86160; 86225; 86708; 86850; 86870; 86880; 86900; 86901; 86902; 86922; 87040; 87086; 87637-QW; 93005; 93010; 93308; 93986; 94660; 94760; 97116-GP; 97162-GP; 99285-25; P9058; Q5106